=== PATIENT | female | born 1970 | race Caucasian/White ===

== ENCOUNTER → 2017-01-15 | Outpatient (CLI) | payer OTHER ==
--- NOTE | 2017-01-15 20:08 | RAD ---
HISTORY: Left hip pain Study: Left hip two views, AP pelvis Comparison: None Findings: A single frontal view of the pelvis demonstrates the pelvic ring to be intact. No evidence for acut e cortical disruption or dislocation of the hip can be observed. Frog leg views of the hip fails to demonstrate evidence for fracture or significant joint abnormality. Impression: 1. Negative exam. Reported By:
--- NOTE | 2017-01-15 20:12 | RAD ---
HISTORY: Degenerative disc disease, back pain Study: Lumbar spine five view Comparison: None Findings: The alignment is normal. The vertebral bodies are of average height. Degenerative disc disease is pr esent at L3-4, L4-5, L5-S1. No spondylolysis or spondylolisthesis is identified. The SI joints are n ormal. The pedicles are intact. Facet degenerative joint disease is present at L4-5 and L5-S1 bilate rally. IMPRESSION: Multilevel degenerative disc disease as described above Facet degenerative joint disease Reported By:
--- NOTE | 2017-01-15 20:13 | RAD ---
HISTORY: Degenerative disc disease Study: Cervical spine five view Comparison: None Findings: There is straightening of the normal cervical lordosis which could be positional or due to muscle sp asm. The alignment is otherwise normal. The prevertebral soft tissues are normal. The vertebral bodi es are of average height degenerative disc disease is present at C5-6. The posterior elements are in tact. The neural foramina are patent. The joints are normal. IMPRESSION: Degenerative disc disease C5-6 Reported By:
== END ==
LOC: RAD 16:44
PROVIDERS: ATTEND Internal Medicine
DX: M51.36 Other intervertebral disc degeneration, lumbar region (principal); M25.552 Pain in left hip; R26.89 Other abnormalities of gait and mobility
CPT/HCPCS: 72050; 72110; 73501

== ENCOUNTER → 2017-02-06 | Outpatient (CLI) | payer OTHER ==
--- NOTE | 2017-02-06 19:45 | MRI ---
HISTORY: Low back pain Study: MRI of the lumbar spine Comparison: Lumbar spine radiographs performed on January 15, 2017 Technique: Multiplanar multi-sequence MRI of the lumbar spine was obtained. Sagittal T1, sagittal T 2, and stir weighted images, axial T1, and axial T2 images were obtained. Findings: Multilevel endplate degenerative changes are noted including edematous changes at L4 and L5. Otherwi se the lumbar vertebral body heights are relatively maintained. No evidence of significant subluxati on is identified. Intervertebral disc space narrowing is seen at L3/L4 and L4/L5. Multilevel disc de siccation and osteophytosis are also noted. L1 -- L2: No evidence of significant central canal or neuroforaminal stenosis is identified. L2 -- L3: Posterior disc bulge and facet arthropathy resulting in mild central canal and mild-to-mod erate bilateral neuroforaminal stenosis. L3 -- L4: Posterior disc bulge and facet arthropathy resulting in mild central canal and severe righ t neuroforaminal stenosis. Moderate neuroforaminal stenosis is noted on the left. L4 -- L5: Posterior disc bulge and facet arthropathy resulting in mild central canal and moderate ri ght neuroforaminal stenosis. Severe neuroforaminal stenosis is noted on the left. L5 -- S1: Posterior disc bulge and facet arthropathy resulting in mild central canal and moderate ri ght neuroforaminal stenosis. Mild neuroforaminal stenosis is noted on the left. IMPRESSION: Multilevel degenerative changes as noted above. Reported By:
--- NOTE | 2017-02-06 19:45 | MRI ---
HISTORY: Neck and back pain with radiculopathy Study: MRI of the cervical spine Comparison: Cervical spine radiographs performed on January 15, 2017 Technique: Multiplanar multisequence MRI of the cervical spine was obtained utilizing standard depar tmental protocol. Findings: There is slight reverse curvature of the cervical spine. The cervical vertebral body heights are rel atively maintained. Intervertebral disc space narrowing is demonstrated at C5/C6. Multilevel osteoph ytosis is also noted. C2 -- C3: No significant central canal or neuroforaminal stenosis is identified. C3 -- C4: Posterior disc bulge with mild central canal and mild left neuroforaminal stenosis. No sig nificant neuroforaminal stenosis is noted on the right. C4 -- C5: Posterior disc bulge with a central component resulting in [id number] central canal stenosis. No significant neuroforaminal stenosis is identified. C5 -- C6: Posterior disc bulge with [id number] central canal and pela-ss-[id number] bilateral ne uroforaminal stenosis. C6 -- C7: Slight posterior disc bulge without evidence of significant central canal or neuroforamina l stenosis. C7 -- T1: Slight posterior disc bulge without evidence of significant central canal or neuroforamina l stenosis. IMPRESSION: Multilevel degenerative changes as noted above. Reported By:
== END | disposition home or self-care (01) | DRG 552 ==
LOC: RAD 09:31
PROVIDERS: ATTEND Nurse Practitioner Family
DX: M54.5 Low back pain (principal); M25.552 Pain in left hip; M51.36 Other intervertebral disc degeneration, lumbar region; R20.2 Paresthesia of skin; M50.821 Other cervical disc disorders at C4-C5 level; M50.822 Other cervical disc disorders at C5-C6 level; M50.823 Other cervical disc disorders at C6-C7 level; M50.83 Other cervical disc disorders, cervicothoracic region
CPT/HCPCS: 72141; 72148

== ENCOUNTER 2017-02-14 15:30 | Observation (INO) | payer BC, OTHER ==
[2017-02-14] MEDS ORDERED: ATIVAN TAB 1 MG PO PRN (16:36)
--- NOTE | 2017-02-14 17:40 | DR.H&P ---
H&P - History & Physical for Day of: H&P Date: 02/14/17 - Chief Complaint Chief Complaint: CP, SOB - Allergies Allergies/Adverse Reactions: Allergies Allergy/AdvReac Type Severity Reaction Status Date / Time Hydromorphone [From Dilaudid] AdvReac Intermediate Verified 04/26/12 10:08 - History of Present Illness History of Present Illness: 46 WF DIRECT ADMIT FROM DR BUSTILLO OFFICE WITH NEW ONSET OF CP AND SOB. PT STATES FEELS LIKE PRESSURE ON CHEST AND SEVERE WEAKNESS. PT HAS PMH OF LUMBAR DDD, C SPINE DDD AND OA. PT ADMITTED FOR SERIAL CE, EKG AND CHEST XRAY - Past Medical History Past Medical History: Arthritis - Family History Family Medical History: Hypertension - Social History Does patient currently use any type of tobacco product: Yes Have you used tobacco products in the last 12 months: Yes Type of Tobacco Use: Cigarettes Does any household member use tobacco: No Alcohol Use: None Drug Use: None - Review of Systems Constitutional: Weakness, Malaise Eyes: No Symptoms Reported ENT: No Symptoms Reported Respiratory: Shortness of Breath Cardiovascular: Chest Pain Gastrointestinal: No Symptoms Reported Genitourinary: No Symptoms Reported Musculoskeletal: Back Pain Skin: No Symptoms Reported Neurological: No Symptoms Reported Oriented: Normal Eyes: Normal Ear: Normal Nose: Normal Throat: Normal Respiratory: Wheezes Throughout, RLL Diminished, LLL Diminished Cardiovascular: Normal : Normal Auscultation: Bowel Sounds: Normal Palpation: Normal Tenderness: Normal Skin: Normal Musculoskeletal: Back:Thoracic, Tender (CSPINE) Psychiatric: Anxiety Speech Pattern: Clear, Appropriate - Assessment/Plan (1) Chest pain Qualifiers: Chest pain type: C Ischemic chest pain type: I Status: Acute Plan: ADMIT. SERIAL CARDIAC ENZYMES, EKG'S. ADMISSION LABS, CBC CMP CXR, RESP CONSULT. BP AND LIPID CONTROL (2) Shortness of breath Status: Acute
[2017-02-14] MEDS ORDERED: NORCO 10/325 TAB PO PRN (17:47)
[2017-02-14] MEDS: PROTONIX INJ 40 MG VIAL IVP SCH (17:51)
[2017-02-14 18:00] LABS: BILIRUBIN,URINE NEGATIVE (NEGATIVE); BLOOD/HEMOGLOBIN,URINE 1+ (NEGATIVE); GLUCOSE, URINE NEGATIVE (NEGATIVE); KETONES,URINE NEGATIVE (NEGATIVE); LEUKOCYTE ESTERASE ,URINE NEGATIVE (NEGATIVE); NITRITES,URINE NEGATIVE (NEGATIVE); PROTEIN,URINE 1+ (NEGATIVE); UROBILINOGEN,URINE NORMAL (NORMAL)
[2017-02-14 18:23] VITALS: BMI 26.6
[2017-02-14 18:25] LABS: APPEARANCE,URINE CLEAR (CLEAR); BACTERIA,URINE TRACE /HPF (NEGATIVE); COLOR,URINE YELLOW (YELLOW); RBC,URINE 0-2 /HPF (NEGATIVE); SQUAMOUS EPITHELIAL CELL,UR RARE /HPF (NEGATIVE)
[2017-02-14 18:33] LABS: BASOPHILS % (AUTO) 0.3 % (0.2-1.0); EOSINOPHILS # (AUTO) 0.2 x10^3/uL (0.0-0.2); EOSINOPHILS % (AUTO) 3.6 % (0.9-2.9); HEMATOCRIT 44.6 % (36.0-47.0); HEMOGLOBIN 15.3 g/dL (12.0-16.0); LYMPHOCYTES # (AUTO) 2.5 X10^3/uL (1.3-2.9); LYMPHOCYTES % (AUTO) 35.9 % (21.0-51.0); MEAN CORPUSCULAR HEMOGLOBIN 31.1 pg (27.0-34.0); MEAN CORPUSCULAR HGB CONC 34.3 g/dL (33.0-35.0); MEAN CORPUSCULAR VOLUME 90.6 fL (80.0-100.0); MEAN PLATELET VOLUME 7.7 fL (7.4-11.0); MONOCYTES # (AUTO) 0.4 x10^3/uL (0.3-0.8); NEUTROPHILS # (AUTO) 3.7 x10^3/uL (2.2-4.8); NEUTROPHILS % (AUTO) 54.2 % (42.0-75.0); PLATELET COUNT 213 X10^3/uL (150.0-450.0); RED BLOOD COUNT 4.92 X10^6/uL (3.5-5.4); WHITE BLOOD COUNT 6.9 X10^3/uL (3.6-10.0)
--- NOTE | 2017-02-14 18:41 | RAD ---
HISTORY: Shortness of breath and chest pain. Study: Chest one view Comparison: April 22, 2012. Findings: The trachea is midline. The cardiac silhouette is unremarkable. The lungs are clear without focal infiltrate or effusion. The bony thorax is unremarkable. IMPRESSION: 1. No acute cardiopulmonary disease. Reported By:
[2017-02-14 18:46] LABS: PLATELET MORPHOLOGY COMMENT NORMAL (NORMAL)
[2017-02-14 18:48] LABS: ALBUMIN 3.8 g/dL (3.4-5.0); BLOOD UREA NITROGEN 8 mg/dL (7-18); eGFR BLACK RACES > 60 (>60); eGFR NON BLACK RACES > 60 (>60)
[2017-02-14 19:03] LABS: D DIMER 211 ng/mL (0-400)
[2017-02-14 19:04] LABS: ALANINE AMINOTRANSFERASE 40 Units/L (12-78); ALKALINE PHOSPHATASE 78 Units/L (46-116); ASPARTATE AMINO TRANSFERASE 32 Units/L (15-37); CALCIUM 9.1 mg/dL (8.5-10.1); CARBON DIOXIDE 29.1 mmol/L (21-32); CHLORIDE 106 mmol/L (98-107); CREATININE 0.85 mg/dL (0.55-1.02); GLUCOSE 72 mg/dL (65-99); SODIUM 145 mmol/L (136-145)
[2017-02-14] MEDS ORDERED: DUONEB 0.5 MG/3 MG NEB PRN (19:04)
[2017-02-14 19:10] LABS: CREATINE KINASE 117 Units/L (26-192); CREATINE KINASE MB 1.2 ng/mL (0-4.0); TROPONIN I < 0.02 ng/mL (0-1.5)
[2017-02-14] MEDS ORDERED: COLACE CAP 100 MG PO SCH (21:00)
[2017-02-14 23:02] LABS: CKMB % 1.3 % (<4); CREATINE KINASE 79 Units/L (26-192); CREATINE KINASE MB < 1.0 ng/mL (0-4.0); TROPONIN I < 0.02 ng/mL (0-1.5)
[2017-02-15 06:26] LABS: BASOPHILS # (AUTO) 0.1 X10^3/uL (0.0-0.1); EOSINOPHILS # (AUTO) 0.4 x10^3/uL (0.0-0.2); HEMATOCRIT 39.5 % (36.0-47.0); HEMOGLOBIN 13.5 g/dL (12.0-16.0); LYMPHOCYTES # (AUTO) 2.2 X10^3/uL (1.3-2.9); LYMPHOCYTES % (AUTO) 35.6 % (21.0-51.0); MEAN CORPUSCULAR HEMOGLOBIN 30.5 pg (27.0-34.0); MEAN CORPUSCULAR HGB CONC 34.2 g/dL (33.0-35.0); MEAN CORPUSCULAR VOLUME 89.3 fL (80.0-100.0); MEAN PLATELET VOLUME 8.1 fL (7.4-11.0); MONOCYTES # (AUTO) 0.4 x10^3/uL (0.3-0.8); MONOCYTES % (AUTO) 6.6 % (0.0-13.0); NEUTROPHILS # (AUTO) 3.2 x10^3/uL (2.2-4.8); NEUTROPHILS % (AUTO) 50.8 % (42.0-75.0); PLATELET COUNT 187 X10^3/uL (150.0-450.0); RED BLOOD COUNT 4.42 X10^6/uL (3.5-5.4); RED CELL DISTRIBUTION WIDTH 14.5 % (11.6-16.5); WHITE BLOOD COUNT 6.2 X10^3/uL (3.6-10.0)
[2017-02-15 06:32] LABS: ALANINE AMINOTRANSFERASE 31 Units/L (12-78); ALBUMIN 3.1 g/dL (3.4-5.0); ALKALINE PHOSPHATASE 58 Units/L (46-116); ASPARTATE AMINO TRANSFERASE 22 Units/L (15-37); BLOOD UREA NITROGEN 9 mg/dL (7-18); CALCIUM 8.5 mg/dL (8.5-10.1); CARBON DIOXIDE 29.3 mmol/L (21-32); CHLORIDE 110 mmol/L (98-107); CHOL/HDL RATIO 4.1 (0.0-5.0); CHOLESTEROL 148 mg/dL (0-200); CKMB % 1.7 % (<4); COR CA(FOR HYPOALB) 9.2 mg/dL (8.5-10.1); CREATINE KINASE 60 Units/L (26-192); CREATINE KINASE MB < 1.0 ng/mL (0-4.0); CREATININE 0.83 mg/dL (0.55-1.02); GLUCOSE 94 mg/dL (65-99); HDL CHOLESTEROL 36 mg/dL (40-60); SODIUM 147 mmol/L (136-145); TOTAL PROTEIN 6.6 g/dL (6.4-8.2); TRIGLYCERIDES 101 mg/dL (0-150); TROPONIN I < 0.02 ng/mL (0-1.5); eGFR BLACK RACES > 60 (>60); eGFR NON BLACK RACES > 60 (>60)
[2017-02-15] MEDS ORDERED: ASPIRIN 81 MG CHEWTAB PO SCH (09:00)
[2017-02-15] MEDS: PROTONIX INJ 40 MG VIAL IVP SCH (09:35)
--- NOTE | 2017-02-15 12:54 | PCM.DCPLAN ---
Discharge Summary - Admission Date Date of Admission: 02/14/17 - Discharge Date Discharge Date: 02/15/17 - Admission Diagnoses (1) Chest pain Status: Acute (2) Shortness of breath Status: Acute - Discharge Diagnoses Discharge Diagnosis: SAME ADMISSION HTN - Discharge Medications Discharge Medications: Amlodipine Besylate [NORVASC 5 MG *] 5 mg PO DAILY #30 tab 02/15/17 [Rx] Aspirin [ASPIRIN 81 MG CHEWTAB *] 81 mg PO DAILY #30 chew 02/15/17 [Rx] Hydrocodone-Acet 10/325 mg [NORCO 10 MG/325 MG *] 1 tab PO BID 02/15/17 [History ] Ibuprofen [Motrin Tab 800 mg] 800 mg PO BID PRN 02/15/17 [History] - Hospital Course Vital Signs: Temperature 97.9 F Pulse Rate [Left Brachial] 52 Pulse Rate 76 Respiratory Rate 18 Blood Pressure [Left Arm] 140/89 O2 Sat by Pulse Oximetry 94 Latest Lab Results: Laboratory Last Values WBC 6.2 X10^3/uL (3.6-10.0) 02/15/17 05:35 RBC 4.42 X10^6/uL (3.5-5.4) 02/15/17 05:35 Hgb 13.5 g/dL (12.0-16.0) 02/15/17 05:35 Hct 39.5 % (36.0-47.0) 02/15/17 05:35 MCV 89.3 fL (80.0-100.0) 02/15/17 05:35 MCH 30.5 pg (27.0-34.0) 02/15/17 05:35 MCHC 34.2 g/dL (33.0-35.0) 02/15/17 05:35 RDW 14.5 % (11.6-16.5) 02/15/17 05:35 Plt Count 187 X10^3/uL (150.0-450.0) 02/15/17 05:35 Plt Count Comment Adequate (ADEQUATE) 02/14/17 18:19 MPV 8.1 fL (7.4-11.0) 02/15/17 05:35 Neut % 50.8 % (42.0-75.0) 02/15/17 05:35 Lymph % 35.6 % (21.0-51.0) 02/15/17 05:35 Randolph % 6.6 % (0.0-13.0) 02/15/17 05:35 Eos % 6.0 % (0.9-2.9) H 02/15/17 05:35 Baso % 1.0 % (0.2-1.0) 02/15/17 05:35 Neut # 3.2 x10^3/uL (2.2-4.8) 02/15/17 05:35 Lymph # 2.2 X10^3/uL (1.3-2.9) 02/15/17 05:35 Randolph # 0.4 x10^3/uL (0.3-0.8) 02/15/17 05:35 Eos # 0.4 x10^3/uL (0.0-0.2) H 02/15/17 05:35 Baso # 0.1 X10^3/uL (0.0-0.1) 02/15/17 05:35 Absolute Nucleated RBC 0.1 /100WBC 02/15/17 05:35 Total Counted 100 02/14/17 18:19 Neutrophils % (Manual) 77 % (39-76) H 02/14/17 18:19 Lymphocytes % (Manual) 22 % (13-43) 02/14/17 18:19 Monocytes % (Manual) 1 % (4-9) L 02/14/17 18:19 Plt Morphology Comment Normal (NORMAL) 02/14/17 18:19 RBC Morphology Normal (NORMAL) 02/14/17 18:19 INR Target Range - 02/15/17 05:35 INR 1.08 (0.8-1.3) 02/15/17 05:35 PTT 28.6 SECONDS (22.9-36.5) 02/14/17 18:19 PTT Comment - 02/14/17 18:19 D-Dimer 211 ng/mL (0-400) 02/14/17 18:19 Sodium 147 mmol/L (136-145) H 02/15/17 05:35 Corrected Sodium TNP 02/15/17 05:35 Potassium 3.7 mmol/L (3.5-5.1) 02/15/17 05:35 Chloride 110 mmol/L (98-107) H 02/15/17 05:35 Carbon Dioxide 29.3 mmol/L (21-32) 02/15/17 05:35 BUN 9 mg/dL (7-18) 02/15/17 05:35 Creatinine 0.83 mg/dL (0.55-1.02) 02/15/17 05:35 Est GFR (MDRD) Af Amer > 60 (>60) 02/15/17 05:35 Est GFR (MDRD) Non-Af > 60 (>60) 02/15/17 05:35 Glucose 94 mg/dL (65-99) 02/15/17 05:35 Calcium 8.5 mg/dL (8.5-10.1) 02/15/17 05:35 Corrected Calcium 9.2 mg/dL (8.5-10.1) 02/15/17 05:35 Magnesium 2.0 mg/dL (1.7-2.9) 02/14/17 18:19 Total Bilirubin 0.20 mg/dL (0.2-1.0) 02/15/17 05:35 AST 22 Units/L (15-37) 02/15/17 05:35 ALT 31 Units/L (12-78) 02/15/17 05:35 Alkaline Phosphatase 58 Units/L (46-116) 02/15/17 05:35 Creatine Kinase 60 Units/L (26-192) 02/15/17 05:35 CK-MB (CK-2) < 1.0 ng/mL (0-4.0) 02/15/17 05:35 CK/CKMB % Calc 1.7 % (<4) 02/15/17 05:35 Troponin I < 0.02 ng/mL (0-1.5) 02/15/17 05:35 Total Protein 6.6 g/dL (6.4-8.2) 02/15/17 05:35 Albumin 3.1 g/dL (3.4-5.0) L 02/15/17 05:35 Globulin 3.5 g/dL (2.5-4.5) 02/15/17 05:35 Albumin/Globulin Ratio 0.9 Ratio (1.1-2.1) L 02/15/17 05:35 Triglycerides 101 mg/dL (0-150) 02/15/17 05:35 Cholesterol 148 mg/dL (0-200) 02/15/17 05:35 LDL Cholesterol, Calc 92 mg/dL (0-100) 02/15/17 05:35 HDL Cholesterol 36 mg/dL (40-60) L 02/15/17 05:35 Cholesterol/HDL Ratio 4.1 (0.0-5.0) 02/15/17 05:35 Specimen Type Clean catch urine 02/14/17 17:46 Urine Color Yellow (YELLOW) 02/14/17 17:46 Urine Appearance Clear (CLEAR) 02/14/17 17:46 Urine pH 6.0 (5.0 - 8.0) 02/14/17 17:46 Ur Specific [place] 1.010 (1.000-1.030) 02/14/17 17:46 Urine Protein 1+ (NEGATIVE) 02/14/17 17:46 Urine Glucose (UA) Negative (NEGATIVE) 02/14/17 17:46 Urine Ketones Negative (NEGATIVE) 02/14/17 17:46 Urine Occult Blood 1+ (NEGATIVE) 02/14/17 17:46 Urine Nitrite Negative (NEGATIVE) 02/14/17 17:46 Urine Bilirubin Negative (NEGATIVE) 02/14/17 17:46 Urine Urobilinogen Normal (NORMAL) 02/14/17 17:46 Ur Leukocyte Esterase Negative (NEGATIVE) 02/14/17 17:46 Urine RBC 0-2 /HPF (NEGATIVE) 02/14/17 17:46 Urine WBC 0-2 /HPF (NEGATIVE) 02/14/17 17:46 Ur Squamous Epith Cells Rare /HPF (NEGATIVE) 02/14/17 17:46 Urine Bacteria Trace /HPF (NEGATIVE) 02/14/17 17:46 Ur Culture Indicated? No/not indicated 02/14/17 17:46 Urine Opiates Screen Negative (NEG=<300) 02/14/17 17:46 Urine Methadone Screen Negative (NEG=<300) 02/14/17 17:46 Ur Barbiturates Screen Negative (NEG=<200) 02/14/17 17:46 Ur Phencyclidine Scrn Negative (NEG=<25) 02/14/17 17:46 Ur Amphetamines Screen Negative (NEG=<1000) 02/14/17 17:46 U Benzodiazepines Scrn Negative (NEG=<200) 02/14/17 17:46 Urine Cocaine Screen Negative (NEG=<300) 02/14/17 17:46 U Marijuana (THC) Screen Negative (NEG=<50) 02/14/17 17:46 Hospital Course: PATIENT IS A 46-YEAR-OLD WHITE FEMALE WHO WAS ADMITTED FROM dR. Kemp'S OFFICE ONE DAY AGO WITH COMPLAINTS OF CHEST PAIN/PRESSURE AND dot. pATIENT WAS ADMITTED TO RULE OUT ACUTE mi. pATIENT HAD SERIAL CARDIAC ENZYMES AND ekgS WHICH WERE STABLE. pATIENT'S CHEST X-RAY WITHIN NORMAL LIMITS. rESPIRATORY CONSULT RECOMMENDED OVERNIGHT PULSE OX RESULTS ARE PENDING AT THIS TIME. pATIENT DENIES ANY CHEST PAIN THIS MORNING AND STATES SHE FEELS MUCH BETTER. dISCUSSED THE NEED FOR STRESS TEST AND ECHOCARDIOGRAM ON OUTPATIENT BASIS. pATIENT REFUSED FURTHER CARDIAC EVALUATION AT THIS TIME AND REQUESTED DISCHARGE AND FOLLOW-UP OUTPATIENT. pATIENT'S CONDITION WAS STABLE ON DISCHARGE SHE WAS STARTED ON nORVASC 5 MG BY MOUTH DAILY FOR BLOOD PRESSURE CONTROL AND ASPIRIN DAILY WELL. pATIENT INSTRUCTED TO RESUME HOME MEDS AND FOLLOW-UP WITH dR. Kemp IN 1 WEEK PATIENT VERBALIZED UNDERSTANDING AND WAS STABLE ON DISCHARGE. - Discharge Plan Disposition: 01 HOME, SELF-CARE Condition: Stable Prescriptions: Amlodipine Besylate [NORVASC 5 MG *] 5 mg PO DAILY #30 tab Aspirin [ASPIRIN 81 MG CHEWTAB *] 81 mg PO DAILY #30 chew - Follow ups/Referrals Follow ups/Referrals: YUNIER AVILA [Primary Care Provider] - - Instructions Additional Instructions: KEEP BP LOG AND BRING IN FOR VISIT TAKE RX DIRECTED REST NEEDS STRESS TEST AND ECHO ON OUT PT SEE DR KEMP IN ONE WEEK FOR HOSPITAL FOLLOW UP
[2017-02-15 14:16] VITALS: BP 134/87
== END 2017-02-15 14:19 | disposition home or self-care (01) ==
LOC: OBS 15:30
PROVIDERS: ADMIT Internal Medicine; ATTEND Internal Medicine
DX: R07.89 Other chest pain (principal); R06.02 Shortness of breath; R53.1 Weakness; R53.81 Other malaise; M13.89 Other specified arthritis, multiple sites; R94.31 Abnormal electrocardiogram [ECG] [EKG]; I10 Essential (primary) hypertension; Z79.01 Long term (current) use of anticoagulants
CPT/HCPCS: 36415; 71010; 80053; 80061; 80307; 81001; 82550; 82553; 83735; 84484; 85025; 85378; 85610; 85730; 93005; 93010; 94640; 94760; 94762; A4216; A4222; C9113; G0378; G0434; J7620

== ENCOUNTER → 2017-04-25 | Outpatient (CLI) | payer BC, OTHER ==
--- NOTE | 2017-04-25 11:35 | US ---
HISTORY: Postmenopausal bleeding Study: Transvaginal pelvic sonography Comparison: None Technique: Multiple grayscale sonographic images were obtained. Findings: The uterus measured 5.5 x 3.7 x 5 centimeters. Endometrial thickness was normal at 4.8 millimeters. There is a 6.2 x 4.3 millimeter anterior myometrial fibroid present. The right ovary measured 1.5 x 1 x 1.4 centimeters. The left ovary measured 3.3 x 1.6 x 3.6 centimeters. There is a 1.1 centimeter simple left ovarian cyst. No adnexal masses are identified. No free fluid is noted in the cul de sac . IMPRESSION: 6.2 x 4.3 millimeter anterior myometrial fibroid 1.1 centimeter simple right ovarian cyst Reported By:
--- NOTE | 2017-05-01 16:27 | MG ---
HISTORY: SCREENING Comparison: July 06, 2014 FINDINGS: Bilateral CC and MLO projections of the right and left breast were obtained. Heterogeneously dense fibroglandular tissue is seen to be present without suspicious interval change. No new or developin g architectural distortion, mass or clustered microcalcifications can be observed to suggest maligna ncy. Previous dominant left breast nodule has decreased in size or nearly completely resolved. No s kin thickening or nipple retraction is appreciated. No pathological lymphadenopathy can be identif ied. Benign-appearing calcifications are noted within the right and left breast. IMPRESSION: NO RADIOGRAPHIC EVIDENCE OF MALIGNANCY. ACR CATEGORY 2 - benign findings. FOLLOW-UP EXAM 1 YEAR. Diagnostic CAD was utilized and reviewed. * 0 (ZERO) - ASSESSMENT INCOMPLETE; ADDITIONAL IMAGING IS NEEDED. * 1/1 (ONE) - NEGATIVE. * 2/II (TWO) - BENIGN FINDINGS. * 3/III (THREE) - PROBABLY BENIGN FINDING; SHORT INTERVAL FOLLOW-UP SUGGESTED. * 4/IV (FOUR) - SUSPICIOUS ABNORMALITY; BIOPSY SHOULD BE CONSIDERED. * 5/V (FIVE) - HIGHLY SUSPICIOUS OF MALIGNANCY; BIOPSY SHOULD BE PERFORMED. A NEGATIVE X-RAY REPORT SHOULD NOT DELAY BIOPSY IF A DOMINANT OR CLINICALLY SUSPICIOUS MASS IS PRESENT; 4 TO 8 PERCENT OF CANCERS ARE NOT IDENTIFIED BY X-RAY. A NEG ATIVE REPORT MAY REINFORCE THE CLINICAL IMPRESSION. ADENOSIS AND DENSE BREASTS MAY OBSCURE AN UNDER LYING NEOPLASM. Reported By:
== END | disposition home or self-care (01) | DRG 951 ==
LOC: RAD 09:56
PROVIDERS: ATTEND Obstetrics & Gynecology
DX: Z12.31 Encounter for screening mammogram for malignant neoplasm of breast (principal); N95.0 Postmenopausal bleeding; N83.291 Other ovarian cyst, right side
CPT/HCPCS: 76830; 77067

== ENCOUNTER → 2017-11-27 | Outpatient (CLI) | payer BC, OTHER ==
[2017-11-27 12:01] LABS: BASOPHILS # (AUTO) 0.1 X10^3/uL (0.0-0.1); BASOPHILS % (AUTO) 1.3 % (0.2-1.0); EOSINOPHILS # (AUTO) 0.6 x10^3/uL (0.0-0.2); EOSINOPHILS % (AUTO) 8.8 % (0.9-2.9); HEMATOCRIT 44.5 % (36.0-47.0); HEMOGLOBIN 15.5 g/dL (12.0-16.0); LYMPHOCYTES # (AUTO) 1.6 X10^3/uL (1.3-2.9); LYMPHOCYTES % (AUTO) 24.9 % (21.0-51.0); MEAN CORPUSCULAR HEMOGLOBIN 31.8 pg (27.0-34.0); MEAN CORPUSCULAR HGB CONC 34.8 g/dL (33.0-35.0); MEAN CORPUSCULAR VOLUME 91.5 fL (80.0-100.0); MEAN PLATELET VOLUME 7.7 fL (7.4-11.0); MONOCYTES # (AUTO) 0.4 x10^3/uL (0.3-0.8); MONOCYTES % (AUTO) 5.9 % (0.0-13.0); NEUTROPHILS # (AUTO) 3.7 x10^3/uL (2.2-4.8); NEUTROPHILS % (AUTO) 59.1 % (42.0-75.0); PLATELET COUNT 232 X10^3/uL (150.0-450.0); RED BLOOD COUNT 4.87 X10^6/uL (3.5-5.4); RED CELL DISTRIBUTION WIDTH 14.1 % (11.6-16.5); RETICULOCYTE % 0.77 % (0.8-2.2); WHITE BLOOD COUNT 6.3 X10^3/uL (3.6-10.0)
[2017-11-27 12:02] LABS: BILIRUBIN,URINE NEGATIVE (NEGATIVE); BLOOD/HEMOGLOBIN,URINE NEGATIVE (NEGATIVE); GLUCOSE, URINE NEGATIVE (NEGATIVE); KETONES,URINE NEGATIVE (NEGATIVE); LEUKOCYTE ESTERASE ,URINE NEGATIVE (NEGATIVE); NITRITES,URINE NEGATIVE (NEGATIVE); PROTEIN,URINE NEGATIVE (NEGATIVE); UROBILINOGEN,URINE NORMAL (NORMAL)
[2017-11-27 12:09] LABS: APPEARANCE,URINE CLEAR (CLEAR); BACTERIA,URINE TRACE /HPF (NEGATIVE); COLOR,URINE YELLOW (YELLOW); RBC,URINE 0-3 /HPF (NONE SEEN); SQUAMOUS EPITHELIAL CELL,UR FEW /HPF (NEGATIVE)
[2017-11-27 12:13] LABS: ALANINE AMINOTRANSFERASE 17 Units/L (12-78); ALBUMIN 3.9 g/dL (3.4-5.0); ALKALINE PHOSPHATASE 73 Units/L (46-116); ASPARTATE AMINO TRANSFERASE 19 Units/L (15-37); BLOOD UREA NITROGEN 11 mg/dL (7-18); CALCIUM 8.5 mg/dL (8.5-10.1); CARBON DIOXIDE 29.7 mmol/L (21-32); CHLORIDE 105 mmol/L (98-107); CREATININE 0.93 mg/dL (0.55-1.02); SODIUM 143 mmol/L (136-145); TOTAL PROTEIN 8.1 g/dL (6.4-8.2); eGFR BLACK RACES > 60 (>60); eGFR NON BLACK RACES > 60 (>60)
--- NOTE | 2017-11-27 12:16 | RAD ---
Examination: Chest x-ray. Clinical History: Preop for skin cancer. Technique: PA and lateral views of the chest were obtained. Comparison: 02/14/2017. Findings: The cardiac and mediastinal contours are within normal limits. The thoracic aorta is tortuous. No pneumothorax or pleural effusion is noted. The lungs appear clear. Degenerative changes are noted in the spine. No acute osseous abnormality is noted. Impression: 1. No acute disease. Reported By:
[2017-11-27 12:32] LABS: ERYTHROCYTE SEDIMENTATION RATE 8 MM/HOUR (0-20); RHEUMATOID FACTOR NEGATIVE (NEGATIVE)
[2017-11-29 21:48] LABS: HEPATITIS A ANTIBODY IGM Negative (Negative)
[2017-11-30 06:11] LABS: HEPATITIS B CORE IGM Negative (Negative); HEPATITIS B SURFACE ANTIGEN Negative (Negative)
[2017-11-30 06:12] LABS: ANTI STREPTOLYSIN O 126 IU/mL (0-330)
[2017-11-30 12:40] LABS: ANTI-NUCLEAR ANTIBODY TEST None Detected (None Detected); ANTICARDIOLIPIN IGG 2 GPL (0-14); ANTICARDIOLIPIN IGM 5 MPL (0-12)
== END ==
LOC: LAB 10:44
PROVIDERS: ATTEND Nurse Practitioner Family
DX: R21 Rash and other nonspecific skin eruption (principal); D48.5 Neoplasm of uncertain behavior of skin
CPT/HCPCS: 36415; 71046; 80053; 80074; 81001; 82595; 83516; 84165; 84166; 85025; 85045; 85610; 85652; 86021; 86060; 86147; 86160; 86162; 86308; 86334; 86430

== ENCOUNTER → 2017-12-03 | Outpatient (CLI) | payer BC, OTHER | LOC: LAB 13:35 | PROVIDERS: ATTEND Nurse Practitioner Family | DX: R21 Rash and other nonspecific skin eruption (principal); D48.5 Neoplasm of uncertain behavior of skin | CPT/HCPCS: 82274 ==

== ENCOUNTER → 2017-12-14 | Outpatient (CLI) | payer OTHER | LOC: LAB 15:18 | PROVIDERS: ATTEND Nurse Practitioner Family | DX: Z79.899 Other long term (current) drug therapy (principal) | CPT/HCPCS: 36415; 86480 ==